=== PATIENT | female | born 1985 | race Two or more races ===

== ENCOUNTER 2024-05-04 12:44 | Emergency (ER) | payer MEDICAID, SELFPAY ==
[2024-05-04 12:46] VITALS: BMI 29.2
[2024-05-04 13:55] VITALS: BP 108/75; PULSE 77; RESP 19; TEMP 36.8; O2SAT 96
[2024-05-04] MEDS: ONDANSETRON ODT 4 MG TABRAP PO (14:28)
--- NOTE | 2024-05-04 14:39 | PD.EDNV ---
Nausea/Vomit./Diarrhea-RME/HPI General Chief complaint: Nausea/Vomiting/Diarrhea Stated complaint: VOMITING SINCE YESTERDAY Time Seen by Provider: 05/04/24 13:45 Source: patient and family Arrival date/time: 05/04/24 12:44 This is a 39-year-old female who presents to the emergency department for complaints nausea and vomiting since this a.m. She does report she was taking semaglutide injections that was provided by her friend (medication not prescribed). Reports she is does not know if she injected a larger dose than instructed. Patient has a vial with her however no label on the vial. No other complaints of abdominal pain no hematemesis no fever no urinary symptoms. Mode of arrival: ambulatory Related Data Previous Rx's ?Medication ?Instructions ?Recorded ondansetron 4 mg disintegrating 4 mg PO Q4H PRN nausea and 05/04/24 tablet vomiting #14 tabs Allergies Allergy/AdvReac Type Severity Reaction Status Date / Time No Known Allergies Allergy Verified 05/04/24 12:49 Review of Systems Review of Systems Systems Reviewed: All systems reviewed, normal except as documented Narrative Review of Systems: Gen: No fever, no chills, no weight loss EYES: No discharge, no visual changes, no pain HEENT: No ear pain, no congestion, no sore throat PULM: No shortness of breath, no cough, no congestion CV: No chest pain, no dyspnea on exertion, no palpitations GI: + nausea, +vomiting, no diarrhea, no pain, no constipation : No frequency, no urgency,? no dysuria Musc/skel: No joint pain, no back pain Skin: No rash? Psyc: No hallucinations, no depression Heme/Lymph: No easy bleeding or bruising tendencies Neuro: No weakness, no headache ED Exam Narrative Physical exam: General: Sittiing in Exam table in no acute distress, answering questions appropriately HENT: normocephalic, atraumatic, EOMI, PERRLA, moist mucous membranes Chest: chest wall is nontender Cardiac: regular rate and rhythm, normal S1 and S2, no murmurs, rubs, or gallops, capillary refill ?2 seconds Pulmonary: clear to auscultation bilaterally, no wheezing, crackles, or rhonchi Abdominal: active bowel sounds, soft, nontender, nondistended Neuro: A&OX3, CN II-XII intact, sensation grossly intact bilaterally in UE and LE. Skin: no rashes, no ecchymosis Ext: no lower extremity edema Course Quality Measures none Orders Category Date Time Status Ondansetron Odt [Zofran Odt] Med 05/04/24 14:22 Discontinued 4 mg PO X1 ONE Vital Signs Vital signs: Vital Signs Temperature 98.3 F 05/04/24 13:55 Pulse Rate 77 05/04/24 13:55 Respiratory Rate 19 05/04/24 13:55 Blood Pressure 108/75 05/04/24 13:55 Pulse Oximetry (%) 96 05/04/24 13:55 Oxygen Delivery Method Room Air 05/04/24 13:55 Nausea/Vomiting/Diarrhea MDM Narrative MDM Narrative:: 39-year-old female evaluated in the emergency department for possible side effects of semaglutide. Advised patient that nausea and vomiting is a side effect of this medication. Strictly advised patient not to take medication that is not prescribed by her provider. Strictly advised patient not to inject medication from a vial that does not have a name on label. Patient has no vomiting at the time of evaluation. I did give her a prescription of antiemetic advised not to inject please follow-up with her PCP return to the emergency department this any worsening symptoms any condition. Patient data External records reviewed:: [facility] previous records Clinical information provided by:: patient Social determinants that could affect healthcare access:: none Patient has the following chronic illnesses:: none How is presenting disease/condition affected by chronic disease/condition?: no chronic disease Evaluation data The following diagnostics were reviewed and interpreted by me:: other (specify) Lab and/or radiology exams considered but not ordered:: none Interpretation Summary: none Medications / Prescriptions Medications / Prescriptions considered but not ordered:: none Medication administrations:: Medication Administration History Discontinued Medications Ondansetron HCl (Ondansetron Odt 4 Mg Tabrap) 4 mg PO X1 ONE; Protocol Stop: 05/04/24 14:23 Last Admin: 05/04/24 14:28 Dose: 4 mg Documented By: DENISSE all medications administered and effective Consultations Consultation(s) initiated? (list below): No Diagnosis Nausea Differential Diagnosis: drug-induced nausea and vomiting Most likely diagnosis given after review of the tests above:: Drug induced nausea and vomiting Admission Indicated Admission indicated?: not indicated Explain why admission is indicated or not indicated:: none Admission Request Was there a request for admission?: No Disposition Plan Disposition Plan: Discharge Discharge Attestation Discharge Attestation: The patient and all family members were given an opportunity to ask questions and understood the discharge instructions. Discharge instructions specifically effects, indications for sooner follow up or return to the emergency department, and the expected course of current diagnosis. Patient condition: Stable Discharge Plan Plan Patient Disposition: HOME (Self Care) Patient condition on transfer: Stable Prescriptions/Referrals Prescriptions/Med Rec: New ondansetron 4 mg tablet,disintegrating 4 mg PO Q4H PRN (Reason: nausea and vomiting) Qty: 14 0RF Rx Instructions: give 1st dose 30min before emetogenic chemo Problem List Clinical Impression: Drug-induced nausea and vomiting Patient/Caregiver Discharge Instructions Discharge Activity: activity as tolerated Education Materials: ED Drug Reaction, Other Additional Instructions: The side effect of Ozempic is nausea and vomiting. Is very important that you do not take medication that is not prescribed by your physician. It is very important that you do not administer medication that is not labeled because you can administer the wrong dosage. Please follow-up with your primary doctor in 2 to 3 days Return to the emergency department this any worsening symptoms change in condition. Print Language: [place] Stand Alone Forms: [facility] Award Info., Patient Portal Info Letter ISSA/CHERRY Supervising Physician GINNA Supervising Physician: Dr Renee
== END 2024-05-04 15:32 | disposition home or self-care (01) ==
LOC: SERX 14:56
PROVIDERS: Emergency Provider Emergency Medicine
DX: R11.2 Nausea with vomiting, unspecified (principal); T38.3X5A Adverse effect of insulin and oral hypoglycemic [antidiabetic] drugs, initial encounter
CPT/HCPCS: 99282; Q0162